=== PATIENT | male | born 1990 | race African-American/Black ===

== ENCOUNTER 2024-06-21 12:45 | Emergency (ER) | payer OTHER ==
[~2024-06-21] VITALS: Ht 190.5 cm; Wt 90.7 kg
[2024-06-21 13:35] LABS: BASOPHILS % (AUTO) 0.4 % (0.0-2.0); EOSINOPHILS # (AUTO) 0.1 K/uL (0.0-0.7); EOSINOPHILS % (AUTO) 0.6 % (0.0-7.0); HEMATOCRIT 44.9 % (36.7-47.1); LYMPHOCYTES # (AUTO) 2.5 K/uL (0.8-4.8); MEAN CORPUSCULAR HEMOGLOBIN 28.1 uug (23.8-33.4); MEAN CORPUSCULAR HGB CONC 33 g/dL (32.5-36.3); MEAN CORPUSCULAR VOLUME 84.5 fL (73.0-96.2); MONOCYTES # (AUTO) 0.6 K/uL (0.1-1.30); MONOCYTES % (AUTO) 7.2 % (0.0-11.0); NEUTROPHILS % (AUTO) 60.8 % (38.5-71.5); PLATELET COUNT (AUTO) 357 K/uL (152-348); RED BLOOD CELL COUNT(AUTO) 5.32 MIL/uL (4.06-5.63); RED CELL DISTRIBUTION WIDTH 12.9 % (12.1-16.2); WHITE BLOOD COUNT (AUTO) 8.2 K/uL (3.6-10.2)
[2024-06-21 13:39] LABS: DIFFERENTIAL COMMENT 1
[2024-06-21 13:45] LABS: CALCIUM 11.1 mg/dL (8.5-10.1); CARBON DIOXIDE 28 mmol/L (21-32); CHLORIDE 103 mmol/L (98-107); CREATININE 1.1 mg/dL (0.6-1.3); GLUCOSE 99 mg/dL (74-106); POTASSIUM 4.3 mmol/L (3.5-5.1); SODIUM SERUM 139 mmol/L (136-145); UREA NITROGEN, BLOOD 7 mg/dL (7-18)
[2024-06-21 13:48] LABS: PHOSPHOROUS 2.2 mg/dL (2.5-4.9)
[2024-06-21 13:53] LABS: ALANINE AMINOTRANSFERASE 26 U/L (16-63); ALBUMIN 3.9 g/dL (3.4-5.0); ALKALINE PHOSPHATASE 104 U/L (50-136); ASPARTATE AMINOTRANSFERASE 25 U/L (15-37); BILIRUBIN,DIRECT 0.2 mg/dL (0.0-0.2); BILIRUBIN,TOTAL 0.7 mg/dL (0.2-1.0)
[2024-06-21 14:20] LABS: THYROID STIMULATING HORMONE 2.696 mIU/mL (0.358-3.740)
[2024-06-21] MEDS: IV NORMAL SALINE 1000 ML BAG IV ONE (15:31)
[2024-06-21 15:43] VITALS: BP 112/78; O2SAT 100
== END 2024-06-21 15:43 | disposition home or self-care (01) ==
LOC: ER 12:45
DX: R55 Syncope and collapse (principal); I44.0 Atrioventricular block, first degree; R42 Dizziness and giddiness; R94.31 Abnormal electrocardiogram [ECG] [EKG]
CPT/HCPCS: 36415; 71045; 83735; 84100; 84443; 84484; 85025; 85730; 86850; 86900; 86901; A4606; A4663

== ENCOUNTER 2024-06-25 16:59 | Emergency (ER) | payer OTHER ==
[~2024-06-25] VITALS: Ht 190.5 cm; Wt 90.7 kg
[2024-06-25 19:03] VITALS: BP 121/74; TEMP 98; O2SAT 100
== END 2024-06-25 19:04 | disposition home or self-care (01) ==
LOC: ER 17:22
DX: R42 Dizziness and giddiness (principal); Z88.7 Allergy status to serum and vaccine
CPT/HCPCS: A4606; A4663

== ENCOUNTER 2024-09-17 11:26 | Emergency (ER) | payer OTHER ==
[~2024-09-17] VITALS: Ht 190.5 cm; Wt 86.2 kg
[2024-09-17 12:23] LABS: BASOPHILS % (AUTO) 0.2 % (0.0-2.0); EOSINOPHILS % (AUTO) 0.3 % (0.0-7.0); HEMATOCRIT 44.4 % (36.7-47.1); HEMOGLOBIN 14.8 g/dL (12.5-16.3); LYMPHOCYTES # (AUTO) 1.8 K/uL (0.8-4.8); LYMPHOCYTES % (AUTO) 21.4 % (20.5-51.5); MEAN CORPUSCULAR HEMOGLOBIN 28.3 uug (23.8-33.4); MEAN CORPUSCULAR HGB CONC 33 g/dL (32.5-36.3); MEAN CORPUSCULAR VOLUME 84.7 fL (73.0-96.2); MONOCYTES # (AUTO) 0.5 K/uL (0.1-1.30); MONOCYTES % (AUTO) 6.1 % (0.0-11.0); PLATELET COUNT (AUTO) 350 K/uL (152-348); RED BLOOD CELL COUNT(AUTO) 5.24 MIL/uL (4.06-5.63); RED CELL DISTRIBUTION WIDTH 12.8 % (12.1-16.2); WHITE BLOOD COUNT (AUTO) 8.3 K/uL (3.6-10.2)
[2024-09-17] MEDS: IV NORMAL SALINE 1000 ML BAG IV ONE (12:28)
[2024-09-17 12:29] LABS: CALCIUM 11.6 mg/dL (8.5-10.1); CREATININE 1.2 mg/dL (0.6-1.3); POTASSIUM 4.2 mmol/L (3.5-5.1)
[2024-09-17 13:30] VITALS: BP 119/85; O2SAT 99
== END 2024-09-17 13:32 | disposition home or self-care (01) ==
LOC: ER 11:28
DX: R42 Dizziness and giddiness (principal); I10 Essential (primary) hypertension; Z88.7 Allergy status to serum and vaccine
CPT/HCPCS: 99283; 96360; 80048; 85025; 36415; J7040; A4606; A4663

== ENCOUNTER 2024-12-10 11:20 | Emergency (ER) | payer OTHER ==
[~2024-12-10] VITALS: Ht 190.5 cm; Wt 90.7 kg
[2024-12-10 11:21] VITALS: BP 133/82
[2024-12-10] MEDS: IV NORMAL SALINE 1000 ML BAG IV ONE ×2 (11:48→12:47)
[2024-12-10 11:54] LABS: PLATELET COUNT (AUTO) 325 K/uL (152-348); RED BLOOD CELL COUNT(AUTO) 5.58 MIL/uL (4.06-5.63); RED CELL DISTRIBUTION WIDTH 13.1 % (12.1-16.2); WHITE BLOOD COUNT (AUTO) 6.1 K/uL (3.6-10.2)
[2024-12-10 12:02] LABS: CREATININE 1.0 mg/dL (0.6-1.3); SODIUM SERUM 138.0 mmol/L (136-145); UREA NITROGEN, BLOOD 10.0 mg/dL (7-18)
[2024-12-10 13:32] VITALS: BP 130/78; O2SAT 98
== END 2024-12-10 13:33 | disposition home or self-care (01) ==
LOC: ER 11:20
DX: E83.52 Hypercalcemia (principal); E86.0 Dehydration; Z88.7 Allergy status to serum and vaccine; Z86.69 Personal history of other diseases of the nervous system and sense organs; Z60.2 Problems related to living alone
CPT/HCPCS: 99283; 96360; 96361; 80048; 85025; 36415; J7040 ×2; A4606; A4663